=== PATIENT | female | born 1980 | race Caucasian/White ===

== ENCOUNTER 2022-01-29 11:59 | Emergency (ER) | payer OTHER, SELFPAY ==
--- NOTE | 2022-01-29 12:05 | ED.ABDPAIN ---
HPI - Abdominal Pain General Chief Complaint: Abdominal Pain Stated Complaint: STOMACH FULLNESS/INDIGESTION/HEARTBURN/SHAKY Time Seen by Provider: 01/29/22 12:05 Source: patient and RN notes reviewed History of Present Illness HPI narrative: Patient is a 41-year-old female who presents the urgent care with complaints of abdominal distention, lower abdominal discomfort, epigastric discomfort, anxiety. Patient states that she went on a trip recently and came back on Friday. Patient states that when she is on vacation she has had issues in the past where she is unable to relieve herself of her bowels. Patient states that Friday she was able to make for bowel movements and again last night without any difficulty. Patient denies of passing any blood with her stools. Denies any diarrhea. Patient states that she has had the chronic intermittent constipation and has never had a long-lasting abdominal distention or discomfort. Patient states today she did feel slightly nauseated without vomiting. States that she has not taken anything [id number] for her symptoms. Patient reports of some lightheadedness due to the increased pain and anxiety. Patient currently denies of any chest pain. No other acute complaints. No acute distress noted. Patient aware of the plan of care. Some parts of this dictation were generated by voice recognition software and may contain typographical and/or grammatical inaccuracies. Related Data Home Medications Medication Instructions Recorded Confirmed [facility] 01/29/22 Allergies Allergy/AdvReac Type Severity Reaction Status Date / Time metronidazole [From Flagyl] Allergy Rash Verified 01/29/22 12:06 Review of Systems Review of Systems: CONSTITUTIONAL: Denies fever, chills, or sweats. EYES: Denies visual changes, redness, or discharge. ENT: Denies rhinorrhea, congestion, sore throat, or otalgia. CARDIOVASCULAR: Denies chest pain, palpitations, or edema. RESPIRATORY: Denies cough or dyspnea. GASTROINTESTINAL: Reports of abdominal discomfort, intermittent nausea without diarrhea or vomiting GENITOURINARY: Denies dysuria or hematuria. SKIN: Denies rash or itching. MUSCULOSKELETAL: Denies back pain, joint pain, or myalgia. NEUROLOGIC: Denies headache, numbness, or weakness. PSYCHIATRIC: Reports of anxiety and stress All other systems reviewed are negative, except as documented in HPI. PMFSH Comments At the time of my signature, I reviewed and agree with the nursing past medical, surgical, social, and family history. There is no relevant family history pertinent to the patient complaint. Exam Narrative: GENERAL: This is a well-nourished, well-developed patient, in no apparent distress. HEAD: normocephalic, atraumatic. EYES: PERRL. Sclera clear/white. Vision is grossly intact. EARS: External ears normal NOSE: External nose normal with no obvious nasal discharge, nares without redness, no rhinorrhea. THROAT: Mucous membranes moist NECK: Neck supple CARDIOVASCULAR: Regular rate and rhythm without murmurs, gallops, or rubs. RESPIRATORY: Clear to auscultation. Breath sounds equal bilaterally. No wheezes, rales, or rhonchi. GASTROINTESTINAL: Mild to moderate right lower abdominal tenderness, mild distention, mild epigastric tenderness. Hypoactive bowel sounds in all quadrants SKIN: warm, intact with no suspicious lesions or rash, good texture and turgor. NEURO: awake, alert, and oriented to person, place and time. There were no obvious focal neurologic abnormalities. EXTREMITIES: No clubbing, cyanosis, or edema. Course Course Level of Care: Express Care Visit Vital Signs Vital signs: Vital Signs Temperature 98.3 F 01/29/22 12:07 Pulse Rate 82 01/29/22 12:07 Respiratory Rate 16 01/29/22 12:07 Blood Pressure 167/111 H 01/29/22 12:07 Pulse Oximetry 100 01/29/22 12:07 Temperature 98.3 F 01/29/22 12:07 Pulse Rate 82 01/29/22 12:07 Respiratory Rate 16 01/29/22 12:07 Bloo
[2022-01-29 12:07] VITALS: BP 167/111; PULSE 82; RESP 16; TEMP 36.8; O2SAT 100
[2022-01-29 12:40] VITALS: BP 149/101
== END 2022-01-29 12:44 | disposition left against medical advice (07) ==
PROVIDERS: Emergency Provider Nurse Practitioner Family
DX: R10.31 Right lower quadrant pain (principal)
CPT/HCPCS: 99211; G0463